=== PATIENT | female | born 1940 | race Caucasian/White ===

== ENCOUNTER 2019-02-01 14:49 | Emergency (ER) | payer OTHER, MEDICARE ==
[~2019-02-01] VITALS: Ht 165.1 cm; Wt 73.7 kg
[2019-02-01] MEDS ORDERED: SYNT150T PO (16:19)
[2019-02-01] MEDS ORDERED: LOSA100T50 PO (16:45)
[2019-02-01] MEDS ORDERED: AMLO2.5T3 PO (16:45)
[2019-02-01] MEDS ORDERED: LABE100T36 PO (16:45)
--- NOTE | 2019-02-01 17:12 | REP ---
CT BRAIN WITHOUT CONTRAST: CT brain was performed without IV contrast. Ventricles are normal in size and position with no midline shift or mass effect. Swartz white differentiation is well maintained. There is no acute intracranial hemorrhage or extra-axial fluid collection. No skull fracture is seen. IMPRESSION: No evidence of acute intracranial hemorrhage or skull fracture. Electronically Signed by Omero Swartz MD 02/01/2019 05:49 P
--- NOTE | 2019-02-01 17:14 | REP ---
LEFT WRIST, FOUR VIEWS: Four views of the left wrist were performed. No fracture or dislocation is seen. There is moderate narrowing with subchondral sclerosis and spurring at the joint between the trapezium and base of first metacarpal. Chondrocalcinosis is seen distal to the ulna. IMPRESSION: Degenerative changes without fracture or dislocation. Electronically Signed by Omero Swartz MD 02/01/2019 05:49 P
[2019-02-01 17:29] VITALS: BP 173/74
[2019-02-01] MEDS ORDERED: ACETAMINOPHEN TAB 650MG DOSE (2X325MG) PO ONE (17:45)
== END 2019-02-01 17:46 | disposition home or self-care (01) ==
LOC: M ED 14:49
DX: S06.0X0A Concussion without loss of consciousness, initial encounter (principal); S63.502A Unspecified sprain of left wrist, initial encounter; W01.0XXA Fall on same level from slipping, tripping and stumbling without subsequent striking against object, initial encounter; Y92.89 Other specified places as the place of occurrence of the external cause; Y93.89 Activity, other specified; Y99.0 Civilian activity done for income or pay; M11.232 Other chondrocalcinosis, left wrist; Z88.0 Allergy status to penicillin; Z88.1 Allergy status to other antibiotic agents; Z88.8 Allergy status to other drugs, medicaments and biological substances; Z79.899 Other long term (current) drug therapy

== ENCOUNTER 2019-08-17 06:35 | Day surgery (SDC) | payer MEDICARE ==
[~2019-08-17] VITALS: Ht 165.1 cm; Wt 73.0 kg
[~2019-08-17 06:35] MED LIST: AMLO2.5T3 PO; CALCCAP4 PO; LABE100T36 PO; LOSA100T50 PO; MAGN400C PO; NS 1,000 ML IV ONE; PYRI25TA2 PO; SYNT150T PO
[2019-08-17] MEDS ORDERED: propofoL 500 MG/50 ML VIAL As Ordered ONE (07:10)
[2019-08-17] MEDS ORDERED: LIDOCAINE 2% INJ 100 MG/5 ML SDV (FOR ANES.) As Ordered ONE (07:12)
[2019-08-17 08:45] VITALS: BP 129/64
--- NOTE | 2019-08-17 14:40 | ROOR ---
Patient Name: Marybeth Zapata Procedure Date: 08/17/2019 7:31 AM Date of : 1940 Age: 79 Room: [facility] Gender: Female Note Status: Finalized Procedure: Upper Endoscopy + Biopsies Indications: Heartburn, Exclusion of Cortez's esophagus Providers: Jamie Mauro MD Referring MD: Gavin Allison MD Requesting Provider: Medicines: Monitored Anesthesia Care Complications: No immediate complications. Procedure: Pre-Anesthesia Assessment: - The heart rate, respiratory rate, oxygen saturations, blood pressure, adequacy of pulmonary ventilation, and response to care were monitored throughout the procedure. The Endoscope was introduced through the mouth, and advanced to the second part of duodenum. The upper GI endoscopy was accomplished without difficulty. The patient tolerated the procedure well. Findings: The Z-line was irregular and was found 40 cm from the incisors. Multiple biopsies were obtained with cold forceps for evaluation to rule out Cortez's Esophagus randomly at the gastroesophageal junction. A small hiatal hernia was present. Multiple small sessile fundic gland polyps were found on the greater curvature of the stomach. Biopsies were taken with a cold forceps for Helicobacter pylori testing. The exam was otherwise without abnormality. Impression: - Z-line irregular, 40 cm from the incisors. - Small hiatal hernia. - Multiple fundic gland polyps. Resected and retrieved. Biopsied. - The examination was otherwise normal. - Multiple biopsies were obtained at the gastroesophageal junction. - The examination was otherwise normal. Recommendation: - Patient has a contact number available for emergencies. The signs and symptoms of potential delayed complications were discussed with the patient. Return to normal activities tomorrow. Written discharge instructions were provided to the patient. - High fiber diet. - Discharge patient to home. - Follow an antireflux regimen. - Continue present medications. - Await pathology results. - Telephone GI clinic for pathology results in 1 week. - Return to referring physician. - The findings and recommendations were discussed with the patient's family. Jamie Mauro MD Jamie Mauro MD 08/17/2019 2:40:00 PM Electronically signed by Jamie Mauro MD Number of Addenda: 0 Note Initiated On: 08/17/2019 7:31 AM Estimated Blood Loss: Estimated blood loss: none.
--- NOTE | 2019-08-17 14:42 | ROOR ---
Patient Name: Marybeth Zapata Procedure Date: 08/17/2019 7:32 AM Date of : 1940 Age: 79 Gender: Female Note Status: Finalized Procedure: Total Colonoscopy to Cecum + Cold Snare Polypectomy + Hemoclips Indications: High risk colon cancer surveillance: Personal history of colonic polyps, Last colonoscopy: 2014 Providers: Jamie Mauro MD Referring MD: Gavin Allison MD Requesting Provider: Medicines: Monitored Anesthesia Care Complications: No immediate complications. Procedure: Pre-Anesthesia Assessment: - The heart rate, respiratory rate, oxygen saturations, blood pressure, adequacy of pulmonary ventilation, and response to care were monitored throughout the procedure. The Colonoscope was introduced through the anus and advanced to the cecum, identified by appendiceal orifice and ileocecal valve. The colonoscopy was performed without difficulty. The patient tolerated the procedure well. The quality of the bowel preparation was excellent. Findings: The perianal and digital rectal examinations were normal. Non-bleeding internal hemorrhoids were found during retroflexion. The hemorrhoids were small and Grade I (internal hemorrhoids that do not prolapse). Multiple small and large-mouthed diverticula were found in the recto-sigmoid colon, sigmoid colon and descending colon. A small polyp was found at 60 cm proximal to the anus. The polyp was sessile. The polyp was removed with a cold snare. Resection and retrieval were complete. To prevent bleeding after the polypectomy, two hemostatic clips were successfully placed (MR conditional). There was no bleeding at the end of the procedure. The exam was otherwise without abnormality on direct and retroflexion views. Impression: - Non-bleeding internal hemorrhoids. - Diverticulosis in the recto-sigmoid colon, in the sigmoid colon and in the descending colon. - One small polyp at 60 cm proximal to the anus, removed with a cold snare. Resected and retrieved. Clips (MR conditional) were placed. - The examination was otherwise normal on direct and retroflexion views. - The exam was otherwise normal to the cecum. Recommendation: - Patient has a contact number available for emergencies. The signs and symptoms of potential delayed complications were discussed with the patient. Return to normal activities tomorrow. Written discharge instructions were provided to the patient. - High fiber diet. - Discharge patient to home. - Continue present medications. - Await pathology results. - Telephone GI clinic for pathology results in 1 week. - Repeat colonoscopy for symptoms only. - Return to referring physician. - The findings and recommendations were discussed with the patient's family. Jamie Mauro MD Jamie Mauro MD 08/17/2019 2:42:29 PM Electronically signed by Jamie Mauro MD Number of Addenda: 0 Note Initiated On: 08/17/2019 7:32 AM Estimated Blood Loss: Estimated blood loss: none.
== END 2019-08-17 09:09 | disposition home or self-care (01) ==
LOC: M OPP 06:35
PROVIDERS: ATTEND Internal Medicine Gastroenterology
DX: Z12.11 Encounter for screening for malignant neoplasm of colon (principal); K64.0 First degree hemorrhoids; K57.30 Diverticulosis of large intestine without perforation or abscess without bleeding; K63.5 Polyp of colon; R12 Heartburn; K44.9 Diaphragmatic hernia without obstruction or gangrene; K22.8 Other specified diseases of esophagus; K31.7 Polyp of stomach and duodenum; Z86.010 Personal history of colon polyps; Z88.0 Allergy status to penicillin; Z88.2 Allergy status to sulfonamides; Z88.1 Allergy status to other antibiotic agents; Z88.8 Allergy status to other drugs, medicaments and biological substances